=== PATIENT | female | born 1980 | race Two or more races ===

== ENCOUNTER 2017-02-19 10:32 | Emergency (ER) | payer BC ==
[2017-02-19] MEDS ORDERED: IOPAMIDOL 370 (76%) 100 ML VIAL IV ONE (10:33)
[2017-02-19 12:04] LABS: ABSOLUTE NEUTROPHIL COUNT 2.7 K/mm3 (1.8-7.7); BASO % 0.3 % (0.2-1.0); HEMATOCRIT 30.2 % (37.0-47.0); HEMOGLOBIN 10.1 gm/l (12.0-16.0); IMM NEUT% 0.6 % (0-1); LYMPH # 0.7 (1.0-4.8); LYMPH % 19.3 % (15-45); MEAN CELL VOLUME 86.5 fl (81.0-99.0); MEAN CORPUSCULAR HEMOGLOBIN 28.9 pg (27.0-31.0); MEAN CORPUSCULAR HGB CONC 33.4 g/dl (33.0-37.0); MEAN PLATELET VOLUME 9.6 fl (7.4-10.4); MONO # 0.1 (0.0-0.8); NEUT % 77.8 % (43-75); PLATELET COUNT 283 K/mm3 (130-400); RED CELL DISTRIBUTION WIDTH 16.8 % (11.5-14.5)
[2017-02-19 12:17] LABS: ALB/GLOB RATIO 0.5 (>1.0); ALBUMIN 2.1 gm/dL (3.5-5.7); CALCIUM 9.3 mg/dL (8.6-10.3)
--- NOTE | 2017-02-19 13:26 | CT ---
CTA CHEST FOR PE History: Dyspnea with left-sided chest and arm pain. History of thyroid carcinoma. Comparison: None. Procedure: 1 mm axial images were obtained through the chest following the administration of 80cc's of Isovue-370 intravenous contrast. Stacked reconstructed 3 mm images were then photographed in the axial, coronal and sagittal planes. 3-D reconstructed MIP images were also performed on the scanner workstation. Findings: Images demonstrate no significant residual thyroid tissue. There is a small prevascular mediastinal lymph node identified on axial image 36 measuring 8 mm in size. However, enlarged bilateral axillary adenopathy is present measuring up to 2.1 cm within the right axilla, and 1.8 cm within the left axilla. No significant hilar adenopathy is observed. The aortic caliber is appropriate. No pericardial abnormalities are seen. The esophagus appears to be appropriate. The pulmonary arterial tree is adequately opacified. No filling defects are identified within the main, primary or secondary pulmonary arterial branches to suggest presence of a pulmonary embolus. The central airways appear to be clear. There is subtle pleural thickening suggested posteriorly within both hemithoraces. No consolidation or effusion is observed. Linear left basilar atelectasis or scarring is present. Scans to the upper abdomen are grossly unremarkable. The osseous structures appear to be intact. Impression: 1. No evidence of a pulmonary embolus visualized. 2. Enlarged bilateral axillary adenopathy. 3. Subtle pleural thickening within the posterior aspects of both hemithoraces. 4. Linear left basilar atelectasis or scarring.
[2017-02-19 13:59] LABS: URINE BILIRUBIN NEGATIVE (NEGATIVE); URINE BLOOD 1+ (NEGATIVE); URINE GLUCOSE (UA) NEGATIVE (NEGATIVE); URINE LEUKOCYTE ESTERASE NEGATIVE (NEGATIVE); URINE NITRITE NEGATIVE (NEGATIVE); URINE PROTEIN 2+ (NEGATIVE); URINE UROBILINOGEN NORMAL (0-1 mg/dl)
[2017-02-19 14:05] LABS: URINE APPEARANCE HAZY; URINE COLOR YELLOW
[2017-02-19 14:06] LABS: URINE RBC 0-1 /hpf
[2017-02-19 14:07] LABS: URINE BACTERIA RARE; URINE WBC 0-1 /hpf
== END 2017-02-19 14:25 | disposition home or self-care (01) ==
LOC: ED 10:32
DX: M25.512 Pain in left shoulder (principal); R06.02 Shortness of breath; M32.9 Systemic lupus erythematosus, unspecified; Z85.850 Personal history of malignant neoplasm of thyroid
CPT/HCPCS: 83690; 85025; 80053; 84484; 81001; 71275; 99283 ×2; Q9967